=== PATIENT | female | born 1970 | race Caucasian/White ===

== ENCOUNTER 2018-02-01 20:34 | Emergency (ER) | payer OTHER ==
[2018-02-01 20:47] VITALS: BP 131/78; PULSE 80; TEMP 98.2; BMI 46.6
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
[2018-02-01] MEDS ORDERED: KETOROLAC TROMETHAMINE 60 MG/2 ML VIAL IM ONE (21:02)
[2018-02-01] MEDS ORDERED: KETOROLAC TROMETHAMINE 60 MG/2 ML VIAL ONE (21:05)
== END 2018-02-01 21:23 | disposition home or self-care (01) ==
LOC: FER 20:34
PROC: 3E0233Z Introduction of Anti-inflammatory into Muscle, Percutaneous Approach (ICD-10-PCS; principal; 2018-02-01)
DX: S16.1XXA Strain of muscle, fascia and tendon at neck level, initial encounter (principal); S29.012A Strain of muscle and tendon of back wall of thorax, initial encounter; V43.52XA Car driver injured in collision with other type car in traffic accident, initial encounter; Y93.89 Activity, other specified; Y92.410 Unspecified street and highway as the place of occurrence of the external cause
CPT/HCPCS: 99282-25

== ENCOUNTER 2019-05-01 21:04 | Emergency (ER) | payer BC | END 2019-05-01 22:08 | disposition home or self-care (01) | LOC: FER 21:04 ==

== ENCOUNTER 2019-05-03 16:57 | Emergency (ER) | payer BC | END 2019-05-03 17:51 | disposition home or self-care (01) | LOC: FER 16:57 | DX: Z48.01 Encounter for change or removal of surgical wound dressing (principal) ==

== ENCOUNTER 2020-10-17 11:07 | Emergency (ER) | payer OTHER | END 2020-10-17 11:24 | disposition home or self-care (01) | LOC: JVIRT 11:07 | DX: Z20.822 Contact with and (suspected) exposure to COVID-19 (principal) | CPT/HCPCS: C9803; G2012-GT; U0003 ==